=== PATIENT | female | born 1955 | race Hispanic/Latino ===

== ENCOUNTER 2019-06-09 08:34 | Outpatient (CLI) | payer MEDICARE ==
--- NOTE | 2019-06-09 10:39 | BD ---
BONE DENSITOMETRY: Date: 06/09/2019 HISTORY: Postmenopausal osteoporosis screening. FINDINGS: Lumbar Spine: BMD (g/cm2) L1 0.977 T-Score: -0.1 L2 0.983 T-Score: -0.4 L3 0.965 T-Score: -1.1 L4 1.023 T-Score: -0.3 Total 0.989 T-Score: -0.5 Left Femoral Neck: 0.725 T-Score: -1.1 Total Femur: 0.899 T-Score: -0.3 IMPRESSION: 1. Bone mineral density of the femoral neck indicates osteopenia. 2. Bone mineral density of the lumbar spine within normal range. 10 YEAR FRACTURE RISK: Major osteoporotic fracture: 4.1% Hip fracture: 0.3% POS: [facility]
== END 2019-06-09 08:35 | disposition home or self-care (01) ==
LOC: BICMAMMO 08:34
PROVIDERS: ATTEND Family Medicine
DX: Z13.820 Encounter for screening for osteoporosis (principal); N95.1 Menopausal and female climacteric states; M85.852 Other specified disorders of bone density and structure, left thigh
CPT/HCPCS: 77080

== ENCOUNTER 2020-05-12 14:24 | Outpatient (CLI) | payer MEDICARE, OTHER ==
--- NOTE | 2020-05-12 14:57 | RAD ---
PA AND LATERAL VIEWS CHEST: HISTORY: Abnormalities of breathing. The patient states COVID-19 infection in February 2020. FINDINGS/IMPRESSION: There are no previous exams for comparison. The heart size is normal. There are patchy peripheral opacities in the lung rascon bilaterally which could be either due to acute or chronic changes. No pneumothorax, lobar consolidation, or pleural e ffusions are seen. There are postop changes of cholecystectomy. POS: OFF
--- NOTE | 2020-05-12 14:59 | RAD ---
LUMBAR SPINE 2 VIEWS: HISTORY: Acute midline low back pain without sciatica. FINDINGS/IMPRESSION: There is minimal anterolisthesis of L4 over L5. No fracture or bony destruction is seen.. There are mild degenerative changes in the lower lumbar spine. POS: OFF
== END 2020-05-12 14:25 | disposition home or self-care (01) ==
LOC: BICRAD 14:24
PROVIDERS: ATTEND Family Medicine
DX: M54.5 Low back pain (principal); R06.89 Other abnormalities of breathing; M47.816 Spondylosis without myelopathy or radiculopathy, lumbar region; M43.16 Spondylolisthesis, lumbar region; R91.8 Other nonspecific abnormal finding of lung field; Z90.49 Acquired absence of other specified parts of digestive tract
CPT/HCPCS: 71046; 72100

== ENCOUNTER 2020-07-27 13:11 | Outpatient (CLI) | payer MEDICARE, OTHER | END 2020-07-27 13:12 | disposition home or self-care (01) | LOC: BICRAD 13:11 | PROVIDERS: ATTEND Internal Medicine Critical Care Medicine | DX: R06.00 Dyspnea, unspecified (principal) | CPT/HCPCS: 71046 ==

== ENCOUNTER 2020-09-01 13:22 | Outpatient (CLI) | payer MEDICARE, OTHER | END 2020-09-01 13:23 | disposition home or self-care (01) | LOC: BICRAD 13:22 | PROVIDERS: ATTEND Internal Medicine Critical Care Medicine | DX: R06.00 Dyspnea, unspecified (principal); R91.8 Other nonspecific abnormal finding of lung field | CPT/HCPCS: 71046 ==

== ENCOUNTER 2020-11-28 10:28 | Outpatient (CLI) | payer MEDICARE, OTHER | END 2020-11-28 10:29 | disposition home or self-care (01) | LOC: BICRAD 10:28 | PROVIDERS: ATTEND Internal Medicine Critical Care Medicine | DX: R06.00 Dyspnea, unspecified (principal); J84.10 Pulmonary fibrosis, unspecified | CPT/HCPCS: 71046 ==

== ENCOUNTER 2020-12-27 12:29 | Outpatient (CLI) | payer MEDICARE, OTHER | END 2020-12-27 12:30 | disposition home or self-care (01) | LOC: RAD 12:29 | PROVIDERS: ATTEND Internal Medicine Gastroenterology | DX: J39.2 Other diseases of pharynx (principal); R06.89 Other abnormalities of breathing | CPT/HCPCS: 74220 ==